=== PATIENT | male | born 1995 | race African-American/Black ===

== ENCOUNTER 2017-07-07 00:30 | Emergency (ER) | payer MEDICAID ==
[~2017-07-07] VITALS: Ht 180.3 cm; Wt 54.4 kg
[2017-07-07 01:10] VITALS: BP 114/75
== END 2017-07-07 01:46 | disposition home or self-care (01) ==
LOC: ER 00:34
DX: Z20.6 Contact with and (suspected) exposure to human immunodeficiency virus [HIV] (principal)
CPT/HCPCS: A4606; Z7610